=== PATIENT | female | born 1980 | race Caucasian/White ===

== ENCOUNTER → 2018-04-10 | Outpatient (CLI) | payer OTHER ==
[~2018-04-10] MED LIST: MACROBID 100 M100 M1 PO; NOHOMEMEDICATIONS; PRENATAL; PYRIDIUM200 MG PO
== END ==
LOC: M.CT 14:39
DX: G44.52 New daily persistent headache (NDPH) (principal); R47.81 Slurred speech; M62.81 Muscle weakness (generalized); I15.9 Secondary hypertension, unspecified; I10 Essential (primary) hypertension; Z68.41 Body mass index [BMI] 40.0-44.9, adult

== ENCOUNTER → 2021-01-08 | Outpatient (CLI) | payer OTHER | LOC: M.NUC 07:36 | PROVIDERS: ATTEND Nurse Practitioner Adult Health | DX: R11.2 Nausea with vomiting, unspecified (principal); R10.10 Upper abdominal pain, unspecified ==